=== PATIENT | male | born 1985 | race Two or more races ===

== ENCOUNTER 2019-11-22 20:23 | Emergency (ER) | payer MEDICAID, OTHER ==
[~2019-11-22] VITALS: Ht 177.8 cm; Wt 102.1 kg
[2019-11-22 22:39] VITALS: BP 132/80
[2019-11-22] MEDS ORDERED: HYDROcodone-ACET 5/325MG TAB PO ONE (22:45)
== END 2019-11-22 23:20 | disposition home or self-care (01) ==
LOC: ER 20:24
DX: S46.912A Strain of unspecified muscle, fascia and tendon at shoulder and upper arm level, left arm, initial encounter (principal); W19.XXXA Unspecified fall, initial encounter; Y93.67 Activity, basketball; Y92.39 Other specified sports and athletic area as the place of occurrence of the external cause; Y99.8 Other external cause status
CPT/HCPCS: 73080

== ENCOUNTER 2021-03-12 17:43 | Emergency (ER) | payer MEDICAID ==
[~2021-03-12] VITALS: Ht 180.3 cm; Wt 128.8 kg
[2021-03-12 21:15] VITALS: BP 124/81
== END 2021-03-12 22:12 | disposition home or self-care (01) ==
LOC: ER 17:44
DX: S93.402A Sprain of unspecified ligament of left ankle, initial encounter (principal); W21.02XA Struck by soccer ball, initial encounter; Y93.66 Activity, soccer; Y92.39 Other specified sports and athletic area as the place of occurrence of the external cause; Y99.8 Other external cause status
CPT/HCPCS: 73610

== ENCOUNTER 2021-11-20 10:55 | Inpatient (IN) | payer MEDICAID ==
[~2021-11-20] VITALS: Ht 182.9 cm; Wt 125.4 kg
[2021-11-20] MEDS ORDERED: ONDANSETRON HCL 4 MG/2 ML VIAL IV ONE (12:00)
[2021-11-20] MEDS ORDERED: PANTOPRAZOLE 40 MG/10 ML VIAL INJ IV ONE (12:00)
[2021-11-20] MEDS ORDERED: SODIUM CHLORIDE 0.9% 1,000 ML IVB ONE (12:00)
[2021-11-20] MEDS ORDERED: MORPHINE SULFATE 4 MG/ML SYR/VIAL IV ONE (12:00)
[2021-11-20] MEDS ORDERED: PIPERACILLIN-TAZOB 3.375GM 100 ML IV ONE (13:15)
[2021-11-20 14:29] LABS: Basophils # (auto) 0.1 10 ^3/uL (0-0.2); Basophils % (auto) 0.5 % (0.0-2.0); Eosinophils # (auto) 0.1 10 ^3/uL (0-0.8); Eosinophils % (auto) 0.6 % (0.0-7.0); Hemoglobin 15.1 g/dL (13.5-17.5); Lymphocytes # (auto) 1.6 10 ^3/uL (0.4-5.4); Lymphocytes % (auto) 12.7 % (10.0-50.0); Mean Corpuscular Hemoglobin 31.1 pg (28.0-32.0); Mean Corpuscular Hgb Conc. 35.1 g/dL (32.0-36.0); Mean Corpuscular Volume 88.6 fL (80.0-100.0); Monocytes # (auto) 0.8 10 ^3/uL (0-1.3); Monocytes % (auto) 6.6 % (0.0-12.0); Neutrophils # (auto) 9.8 10 ^3/uL (1.6-8.6); Neutrophils % (auto) 79.6 % (37.0-80.0); Red Blood Cells 4.86 10^6/uL (4.5-5.90); Red Cell Distribution Width 12.9 % (11.8-14.3); White Blood Cell 12.3 10^3/uL (4.4-10.8)
[2021-11-20 14:43] LABS: INR 1.06 (0.9-1.15); Partial Thromboplastin Time 28.7 sec (23.6-33.0)
[2021-11-20 14:47] LABS: Albumin 3.8 g/dL (3.4-5.0); Calcium 8.7 mg/dL (8.5-10.1); Potassium 3.7 mmol/L (3.5-5.1)
[2021-11-20 14:52] LABS: BUN/Creatinine Ratio 12.4; Bilirubin, Total 0.8 mg/dL (0.2-1.0)
[2021-11-20] MEDS ORDERED: LIDOCAINE 1%-Mpf/Epinephrine 1:200,000 ONE (15:26)
[2021-11-20] MEDS ORDERED: ONDANSETRON HCL 4 MG/2 ML VIAL IV PRN (16:15)
[2021-11-20] MEDS ORDERED: MORPHINE SULFATE INJ 2 MG/ml SYRG IV PRN (16:15)
[2021-11-20] MEDS ORDERED: SOD CHL 0.9%/ KCL 20MEQ 1,000 ML IV ONE (16:15)
[2021-11-20] MEDS ORDERED: HYDROmorphone HCL 2 MG/ML VL/or syr IM ONE (16:30)
[2021-11-20] MEDS ORDERED: D5W/SOD CHL 0.45%/KCL 40MEQ 1,000 ML IV ONE (16:30)
[2021-11-20 17:18] LABS: Urine Bacteria NONE SEEN /hpf (None Seen); Urine Blood Negative /uL (Negative); Urine Mucus FEW (None Seen); Urine Specific Gravity 1.026 (1.001-1.035); Urine WBC 1 /hpf (0 - 3)
[2021-11-20 17:21] LABS: Alcohol, Urine < 3.0 mg/dL (0-10); Amphetamine Screen, Urine NEGATIVE (NEGATIVE); Barbiturate Scree,Urine NEGATIVE (NEGATIVE); Benzodiazephine Screen, Urine NEGATIVE (NEGATIVE); Cannabinoid Screen, Urine NEGATIVE (NEGATIVE); Cocaine Screen, Urine NEGATIVE (NEGATIVE); Opiate Scree,Urine POSITIVE (NEGATIVE); Phencyclidine Screen, Urine NEGATIVE (NEGATIVE)
[2021-11-20] MEDS ORDERED: NORPTMEDS CO (18:17)
[2021-11-20 18:24] VITALS: BP 133/70
[2021-11-20 22:00] VITALS: BP 112/70
[2021-11-20] MEDS: metroNIDAZOLE 500MG/100ML 100 ML IV SCH (22:09)
[2021-11-21 05:00] VITALS: BP 121/81
[2021-11-21] MEDS: metroNIDAZOLE 500MG/100ML 100 ML IV SCH ×3 (06:02→21:36)
[2021-11-21 06:42] LABS: Basophils # (auto) 0 10 ^3/uL (0-0.2); Basophils % (auto) 0.6 % (0.0-2.0); Eosinophils # (auto) 0.1 10 ^3/uL (0-0.8); Eosinophils % (auto) 0.9 % (0.0-7.0); Hematocrit 42.2 % (41.0-53.0); Hemoglobin 14.5 g/dL (13.5-17.5); Lymphocytes # (auto) 1.7 10 ^3/uL (0.4-5.4); Lymphocytes % (auto) 20.7 % (10.0-50.0); Mean Corpuscular Hgb Conc. 34.4 g/dL (32.0-36.0); Mean Corpuscular Volume 90.2 fL (80.0-100.0); Monocytes # (auto) 0.6 10 ^3/uL (0-1.3); Monocytes % (auto) 7.7 % (0.0-12.0); Neutrophils # (auto) 5.7 10 ^3/uL (1.6-8.6); Neutrophils % (auto) 70.1 % (37.0-80.0); Red Blood Cells 4.68 10^6/uL (4.5-5.90); White Blood Cell 8.2 10^3/uL (4.4-10.8)
[2021-11-21 07:07] LABS: Albumin 3.3 g/dL (3.4-5.0); BUN/Creatinine Ratio 9.4; Calcium 8.5 mg/dL (8.5-10.1); Potassium 3.7 mmol/L (3.5-5.1)
[2021-11-21 07:10] LABS: Bilirubin, Total 0.6 mg/dL (0.2-1.0)
[2021-11-21 08:00] VITALS: BP 130/73
[2021-11-21] MEDS: cefTRIAXone 1GM/50ML D5W 50 ML IV SCH (09:00)
[2021-11-21 12:00] VITALS: BP 119/76
[2021-11-21 16:00] VITALS: BP 116/76
[2021-11-21 22:00] VITALS: BP 115/70
[2021-11-22 05:00] VITALS: BP 117/71
[2021-11-22] MEDS: metroNIDAZOLE 500MG/100ML 100 ML IV SCH ×3 (05:22→21:04)
[2021-11-22 06:17] LABS: Basophils # (auto) 0 10 ^3/uL (0-0.2); Basophils % (auto) 0.6 % (0.0-2.0); Eosinophils # (auto) 0.1 10 ^3/uL (0-0.8); Eosinophils % (auto) 1.8 % (0.0-7.0); Hematocrit 42.9 % (41.0-53.0); Hemoglobin 14.9 g/dL (13.5-17.5); Lymphocytes # (auto) 1.8 10 ^3/uL (0.4-5.4); Lymphocytes % (auto) 26.6 % (10.0-50.0); Mean Corpuscular Hemoglobin 31.1 pg (28.0-32.0); Mean Corpuscular Hgb Conc. 34.7 g/dL (32.0-36.0); Mean Corpuscular Volume 89.6 fL (80.0-100.0); Monocytes # (auto) 0.5 10 ^3/uL (0-1.3); Monocytes % (auto) 7.8 % (0.0-12.0); Neutrophils # (auto) 4.3 10 ^3/uL (1.6-8.6); Neutrophils % (auto) 63.2 % (37.0-80.0); Nucleated Red Blood Cells % 0.1 %; Red Blood Cells 4.79 10^6/uL (4.5-5.90); Red Cell Distribution Width 12.8 % (11.8-14.3); White Blood Cell 6.9 10^3/uL (4.4-10.8)
[2021-11-22 09:00] VITALS: BP 113/69
[2021-11-22] MEDS: cefTRIAXone 1GM/50ML D5W 50 ML IV SCH (09:00)
[2021-11-22 13:00] VITALS: BP 113/79
[2021-11-22 17:00] VITALS: BP 118/68
[2021-11-22 22:00] VITALS: BP 106/65
[2021-11-23] MEDS: metroNIDAZOLE 500MG/100ML 100 ML IV SCH ×3 (05:25→21:51)
[2021-11-23 05:48] LABS: Basophils # (auto) 0.2 10 ^3/uL (0-0.2); Eosinophils # (auto) 0.1 10 ^3/uL (0-0.8); Eosinophils % (auto) 1.4 % (0.0-7.0); Hematocrit 42.3 % (41.0-53.0); Hemoglobin 14.8 g/dL (13.5-17.5); Lymphocytes # (auto) 1.9 10 ^3/uL (0.4-5.4); Lymphocytes % (auto) 25.5 % (10.0-50.0); Mean Corpuscular Hemoglobin 31.3 pg (28.0-32.0); Mean Corpuscular Hgb Conc. 35.1 g/dL (32.0-36.0); Mean Corpuscular Volume 89.1 fL (80.0-100.0); Monocytes # (auto) 0.6 10 ^3/uL (0-1.3); Monocytes % (auto) 7.8 % (0.0-12.0); Neutrophils # (auto) 4.7 10 ^3/uL (1.6-8.6); Neutrophils % (auto) 63.3 % (37.0-80.0); Nucleated Red Blood Cells % 0.1 %; Red Blood Cells 4.74 10^6/uL (4.5-5.90); Red Cell Distribution Width 12.6 % (11.8-14.3); White Blood Cell 7.4 10^3/uL (4.4-10.8)
[2021-11-23 08:58] VITALS: BP 123/77
[2021-11-23] MEDS: cefTRIAXone 1GM/50ML D5W 50 ML IV SCH (10:15)
[2021-11-23] MEDS ORDERED: traMADol HCL 50 MG TAB PO PRN (11:15)
[2021-11-23 11:33] LABS: Potassium 3.8 mmol/L (3.5-5.1)
[2021-11-23 13:00] VITALS: BP 122/78
[2021-11-23 16:42] VITALS: BP 130/56
[2021-11-23 22:00] VITALS: BP 109/70
[2021-11-24] VITALS (11 sets, daily range): BP systolic 95–134; BP diastolic 56–81
[2021-11-24 06:21] LABS: Basophils # (auto) 0 10 ^3/uL (0-0.2); Basophils % (auto) 0.6 % (0.0-2.0); Eosinophils # (auto) 0.1 10 ^3/uL (0-0.8); Eosinophils % (auto) 1.8 % (0.0-7.0); Hemoglobin 15.1 g/dL (13.5-17.5); Lymphocytes % (auto) 28.7 % (10.0-50.0); Mean Corpuscular Hemoglobin 30.8 pg (28.0-32.0); Mean Corpuscular Hgb Conc. 34.3 g/dL (32.0-36.0); Mean Corpuscular Volume 89.8 fL (80.0-100.0); Monocytes # (auto) 0.6 10 ^3/uL (0-1.3); Monocytes % (auto) 8.1 % (0.0-12.0); Neutrophils # (auto) 4.3 10 ^3/uL (1.6-8.6); Neutrophils % (auto) 60.8 % (37.0-80.0); Nucleated Red Blood Cells % 0.1 %; Red Cell Distribution Width 12.9 % (11.8-14.3)
[2021-11-24] MEDS: metroNIDAZOLE 500MG/100ML 100 ML IV SCH ×3 (06:36→21:44)
[2021-11-24 06:43] LABS: BUN/Creatinine Ratio 11.2; Calcium 8.9 mg/dL (8.5-10.1); Magnesium 2.4 mg/dL (1.6-2.6)
[2021-11-24] MEDS: cefTRIAXone 1GM/50ML D5W 50 ML IV SCH (10:14)
[2021-11-24] MEDS ORDERED: fentaNYL CITRATE 100 MCG/2 ML VL ONE (15:02)
[2021-11-24] MEDS ORDERED: SODIUM CHL 0.9% 0 ML ONE (15:02)
[2021-11-24] MEDS ORDERED: MIDAZOLAM HCL 2MG/2ML 2ml VIAL (1mg/ml) ONE (15:02)
[2021-11-24] MEDS ORDERED: ANGIOMAX 250 MG VIAL IV ONE (15:02)
[2021-11-24] MEDS ORDERED: LIDOCAINE 2%HCL (LOCAL ANESTH.) INJ 10ml MDV ONE (15:08)
[2021-11-24] MEDS: MAGNESIUM OXIDE 400 MG TAB PO SCH (21:44)
[2021-11-24] MEDS: FLECAINIDE ACETATE 50 MG TAB PO SCH (21:45)
[2021-11-25 05:00] VITALS: BP 105/74
[2021-11-25] MEDS: metroNIDAZOLE 500MG/100ML 100 ML IV SCH ×3 (06:22→21:13)
[2021-11-25 09:00] VITALS: BP 118/76
[2021-11-25] MEDS: MAGNESIUM OXIDE 400 MG TAB PO SCH ×2 (10:14→21:14)
[2021-11-25] MEDS: FLECAINIDE ACETATE 50 MG TAB PO SCH (10:15)
[2021-11-25] MEDS: cefTRIAXone 1GM/50ML D5W 50 ML IV SCH (10:15)
[2021-11-25 13:00] VITALS: BP 110/70
[2021-11-25 17:00] VITALS: BP 124/69
[2021-11-25] MEDS: AMIODARONE HCL 200 MG TAB PO SCH (21:13)
[2021-11-25 22:00] VITALS: BP 108/71
[2021-11-26 04:41] VITALS: BP 115/70
[2021-11-26] MEDS: metroNIDAZOLE 500MG/100ML 100 ML IV SCH (05:26)
[2021-11-26 08:55] LABS: BUN/Creatinine Ratio 10.4; Calcium 8.9 mg/dL (8.5-10.1); Magnesium 2.9 mg/dL (1.6-2.6)
[2021-11-26 09:00] VITALS: BP 99/57
[2021-11-26] MEDS: cefTRIAXone 1GM/50ML D5W 50 ML IV SCH (09:00)
[2021-11-26] MEDS: MAGNESIUM OXIDE 400 MG TAB PO SCH ×2 (11:03→21:14)
[2021-11-26] MEDS: AMIODARONE HCL 200 MG TAB PO SCH ×2 (11:15→21:13)
[2021-11-26 13:00] VITALS: BP 117/80
[2021-11-26] MEDS: metroNIDAZOLE 500 MG TAB PO SCH ×2 (14:00→21:14)
[2021-11-26 16:35] VITALS: BP 127/85
[2021-11-26 22:00] VITALS: BP 107/70
[2021-11-27 05:00] VITALS: BP 111/60
[2021-11-27] MEDS: metroNIDAZOLE 500 MG TAB PO SCH ×2 (05:28→14:00)
[2021-11-27 08:00] VITALS: BP 115/67
[2021-11-27 08:10] VITALS: BP 110/67
[2021-11-27] MEDS: cefTRIAXone 1GM/50ML D5W 50 ML IV SCH (08:44)
[2021-11-27] MEDS: AMIODARONE HCL 200 MG TAB PO SCH (10:07)
[2021-11-27] MEDS: MAGNESIUM OXIDE 400 MG TAB PO SCH (10:07)
[2021-11-27 12:00] VITALS: BP 95/55
[2021-11-27] MEDS ORDERED: MAGN241.4 PO (12:14)
[2021-11-27] MEDS ORDERED: AMIO400T7 PO (12:14)
[2021-11-27] MEDS ORDERED: MET500T PO (12:14)
[2021-11-27] MEDS ORDERED: LEVO500T31 PO (12:14)
[2021-11-27 14:31] VITALS: BP 95/55
== END 2021-11-27 16:13 | disposition home or self-care (01) | DRG 192 ==
LOC: ER 10:55 → TELE-EAST 16:20
PROVIDERS: ADMIT Registered Nurse; ATTEND Internal Medicine
PROC: 4A023N7 Measurement of Cardiac Sampling and Pressure, Left Heart, Percutaneous Approach (ICD-10-PCS; principal; 2021-11-24)
PROC: B211YZZ Fluoroscopy of Multiple Coronary Arteries using Other Contrast (ICD-10-PCS; 2021-11-24)
PROC: B215YZZ Fluoroscopy of Left Heart using Other Contrast (ICD-10-PCS; 2021-11-24)
PROC: B310YZZ Fluoroscopy of Thoracic Aorta using Other Contrast (ICD-10-PCS; 2021-11-24)
DX: I47.2 Ventricular tachycardia (principal); K35.80 Unspecified acute appendicitis; E66.01 Morbid (severe) obesity due to excess calories; E87.6 Hypokalemia; K40.90 Unilateral inguinal hernia, without obstruction or gangrene, not specified as recurrent; K42.9 Umbilical hernia without obstruction or gangrene; I49.3 Ventricular premature depolarization; Z20.822 Contact with and (suspected) exposure to COVID-19; Z68.38 Body mass index [BMI] 38.0-38.9, adult; Z83.3 Family history of diabetes mellitus
CPT/HCPCS: 36415; 71045; 74176; 75600; 80048; 80053; 80307; 81001; 82150; 83036; 83690; 83735; 84132; 84443; 84484; 85025; 85610; 85730; 86850; 86900; 86901; 93306; 93458; 96365; 96375; 99152; C9113; G0378; J0696; J2001; J2250; J2405; J2543; J3490

== ENCOUNTER 2023-08-13 09:47 | Emergency (ER) | payer MEDICAID ==
[~2023-08-13] VITALS: Ht 180.3 cm; Wt 129.4 kg
[~2023-08-13 09:47] MED LIST: AMIO400T7 PO; LEVO500T31 PO; MAGN241.4 PO; MET500T PO; NORPTMEDS CO
[2023-08-13 09:55] VITALS: BP 128/93; PULSE 60; RESP 16; O2SAT 98
[2023-08-13] MEDS ORDERED: NABU-72 PO (10:51)
== END 2023-08-13 10:52 | disposition home or self-care (01) ==
LOC: ER 09:47
DX: M79.645 Pain in left finger(s) (principal); Z79.2 Long term (current) use of antibiotics; Z79.899 Other long term (current) drug therapy; W23.0XXA Caught, crushed, jammed, or pinched between moving objects, initial encounter; Y93.66 Activity, soccer; Y92.89 Other specified places as the place of occurrence of the external cause; Y99.8 Other external cause status
CPT/HCPCS: 29130; 73140